=== PATIENT | male | born 1940 | race Caucasian/White ===

== ENCOUNTER 2018-07-01 11:21 | Observation (INO) | payer MEDICARE ==
[~2018-07-01] VITALS: Ht 180.3 cm; Wt 84.1 kg
[2018-07-01] MEDS ORDERED: SODIUM CHLORIDE 0.9% 1,000 ML IV SCH (12:36)
[2018-07-01 12:43] VITALS: BP 108/55
[2018-07-01] MEDS ORDERED: ALEN70TA6 PO (12:59)
[2018-07-01] MEDS ORDERED: SODIUM CHLORIDE 0.9% 1,000 ML IV ONE (13:00)
[2018-07-01] MEDS ORDERED: SPIR25TA5 PO (13:00)
[2018-07-01] MEDS ORDERED: BUME0.5T PO (13:00)
[2018-07-01] MEDS ORDERED: METO25TA91 PO (13:00)
[2018-07-01] MEDS ORDERED: APIX5TAB PO (13:00)
[2018-07-01] MEDS ORDERED: ALLO300T PO (13:00)
[2018-07-01] MEDS ORDERED: URSO300C27 PO (13:00)
[2018-07-01] MEDS ORDERED: CHOL20002 PO (13:13)
[2018-07-01] MEDS ORDERED: POTA10TA PO (13:13)
[2018-07-01] MEDS ORDERED: MAGN400T36 PO (13:13)
[2018-07-01] MEDS ORDERED: MIDAZOLAM 1 MG/ML, 2ML ONE (13:20)
[2018-07-01] MEDS ORDERED: FENTANYL PF 250 MCG/5ML ONE (13:20)
[2018-07-01] MEDS ORDERED: LIDOCAINE 1%, 20ML ONE (13:29)
[2018-07-01] MEDS ORDERED: ROCURONIUM 10 MG/ML,10ML ONE (13:33)
[2018-07-01] MEDS ORDERED: SUCCINYLCHOLINE 20 MG/ML, 10ML ONE (13:33)
[2018-07-01] MEDS ORDERED: DEXAMETHASONE 4 MG/ML, 5ML ONE ×2 (13:33→15:30)
[2018-07-01] MEDS ORDERED: PROPOFOL 10 MG/ML, 20ML ONE (15:30)
[2018-07-01] MEDS ORDERED: ONDANSETRON 2MG/ML, 2ML ONE (15:30)
[2018-07-01] MEDS ORDERED: PHENYLEPHRINE 10 MG/ML ONE (15:30)
[2018-07-01] MEDS ORDERED: ONDANSETRON ODT 8 MG PO PRN (17:30)
[2018-07-01] MEDS ORDERED: ONDANSETRON 2MG/ML, 2ML IV PRN (17:30)
[2018-07-01] MEDS ORDERED: MORPHINE SULFATE 4 MG/ML, 1ML IVPush PRN (17:30)
[2018-07-01] MEDS ORDERED: PROMETHAZINE 25 MG/ML, 1ML IV PRN (17:30)
[2018-07-01] MEDS ORDERED: MIDAZOLAM 1 MG/ML, 2ML IV PRN (17:30)
[2018-07-01] MEDS ORDERED: EPHEDRINE 50 MG/ML, 1ML IM PRN (17:30)
[2018-07-01] MEDS ORDERED: ACETAMINOPHEN 325 MG TABLET PO PRN (17:30)
[2018-07-01] MEDS ORDERED: DIAZEPAM 5 MG/ML, 2ML IVPush PRN (17:30)
[2018-07-01] MEDS ORDERED: FENTANYL PF 100 MCG/2ML IV PRN (17:30)
[2018-07-01] MEDS ORDERED: DIPHENHYDRAMINE 50 MG/ML, 1ML IVPush PRN (17:30)
[2018-07-01] MEDS ORDERED: PROMETHAZINE 25 MG SUPP PR PRN (17:30)
[2018-07-01] MEDS ORDERED: OXYcodone 5 MG/5 ML ORAL.SOL UDC PO PRN (17:30)
[2018-07-01] MEDS ORDERED: PROMETHAZINE 12.5 MG SUPP PR PRN (17:30)
[2018-07-01] MEDS ORDERED: PROTAMINE SULFATE 10 MG/ML, 5ML ONE (17:41)
[2018-07-01] MEDS: APIXABAN 5 MG TABLET PO SCH (19:30)
[2018-07-01 20:54] VITALS: BP 103/61
[2018-07-01] MEDS: POTASSIUM CHLORIDE 20 MEQ TAB.ER.PRT PO SCH (22:49)
[2018-07-01] MEDS: URSODIOL 300 MG CAPSULE PO SCH (22:49)
[2018-07-02 01:31] VITALS: BP 89/53
[2018-07-02] MEDS: SODIUM CHLORIDE 0.9% 500 ML IV SCH ×2 (02:45→11:12)
[2018-07-02 03:59] VITALS: BP 93/55
[2018-07-02 07:10] VITALS: BP 106/59
[2018-07-02] MEDS: POTASSIUM CHLORIDE 20 MEQ TAB.ER.PRT PO SCH (08:15)
[2018-07-02] MEDS: URSODIOL 300 MG CAPSULE PO SCH (08:16)
[2018-07-02] MEDS: APIXABAN 5 MG TABLET PO SCH (08:17)
[2018-07-02] MEDS ORDERED: METOPROLOL SUCCINATE 50 MG TAB.ER.24H PO SCH (09:00)
[2018-07-02] MEDS ORDERED: BUMETANIDE 1 MG TABLET PO SCH (09:00)
[2018-07-02] MEDS ORDERED: CHOLECALCIFEROL 1,000 UNIT TABLET PO SCH (09:00)
[2018-07-02] MEDS ORDERED: SPIRONOLACTONE 25 MG TABLET PO SCH (09:00)
[2018-07-02] MEDS ORDERED: ALLOPURINOL 300 MG TABLET PO SCH (09:00)
[2018-07-02] MEDS ORDERED: MAGNESIUM OXIDE 400 MG TABLET PO SCH (09:00)
[2018-07-07] MEDS ORDERED: ALENDRONATE 70 MG TABLET PO SCH (06:30)
== END 2018-07-02 12:20 | disposition home or self-care (01) ==
LOC: CACL 11:21 → 5SO 16:32 → CACL 23:01 → DCLOUNGE 07-02 12:15
PROVIDERS: ADMIT Internal Medicine Cardiovascular Disease; ATTEND Internal Medicine Cardiovascular Disease
DX: I48.92 Unspecified atrial flutter (principal); I48.91 Unspecified atrial fibrillation
CPT/HCPCS: 0399T; 85347; 93306; 93312; 93321; 93325; 93462; 93613; 93621; 93653; 93655; 93662; C1730; C1731; C1732; C1759; C1766; C1769; C1894; G0378; J0330; J1100; J2250; J2370; J2405; J2704; J2720; J3010; J3490; J7040; Q9967

== ENCOUNTER 2019-03-22 13:14 | Inpatient (IN) | payer MEDICARE ==
[2019-03-22] VITALS (9 sets, daily range): BP systolic 93–106; BP diastolic 54–65
[~2019-03-22] VITALS: Ht 180.3 cm; Wt 93.3 kg
[~2019-03-22 13:14] MED LIST: ALEN70TA6 PO; ALLO300T PO; APIX5TAB PO; BUME0.5T2 PO; CHOL20002 PO; MAGN400T36 PO; METO25TA91 PO; POTA10TA PO; SPIR25TA5 PO; URSO300C27 PO
[2019-03-22] MEDS ORDERED: SODIUM CHLORIDE 0.9% 1,000ML IVBOLUS ONE (13:30)
[2019-03-22] MEDS ORDERED: SODIUM CHLORIDE FLUSH 10ML SYR IVF ONE (13:30)
[2019-03-22] MEDS ORDERED: CEFTRIAXONE PMX 1GM/50ML 50 ML IVPB ONE (13:30)
[2019-03-22] MEDS ORDERED: ONDANSETRON 2MG/ML, 2ML IVPush ONE (13:30)
--- NOTE | 2019-03-22 13:41 | NUR ---
BRE. REPORT RECEIVED FROM EMS. PT C/O ALL QUADRANTS ABD PAIN SINCE 10:30 TODAY. NO BM FOR 4 DAYS. DX LEUKEMIA AND NO TREATMENT AT THIS TIME. PT WAS DC FROM [facility] ON SAT D/T CHEMO SIDE EFFECTS AND PNA. PT'S AOX4. RESPS EVEN AND UNLABORED. SINUS TACHY ON FUEL CELL BUILDER RATE 100'S AT THIS TIME. HYPOTENSIVE AT THIS TIME. EDMD NOTIFIED.
[2019-03-22 13:57] LABS: INTERNATIONAL NORMALIZED RATIO 1.69 (0.93-1.1); PROTHROMBIN TIME 17.4 Seconds (9.6-11.5)
[2019-03-22] MEDS ORDERED: ONDANSETRON 2MG/ML, 2ML ONE (13:57)
[2019-03-22] MEDS ORDERED: CEFTRIAXONE PMX 1GM/50ML 50 ML ONE (13:57)
[2019-03-22] MEDS ORDERED: HYDROmorphone 1 MG/ML, 1ML VIAL ONE (13:57)
[2019-03-22 13:59] LABS: ALBUMIN 2.1 g/dL (3.4-5.0); ANION GAP 8 mmol/L (5-15); CALCIUM 7.9 mg/dL (8.5-10.1); CHLORIDE 111 mmol/L (98-107); CREATININE 3.24 mg/dL (0.7-1.3)
[2019-03-22 14:01] LABS: ALKALINE PHOSPHATASE 132 U/L (45-117); TOTAL PROTEIN 4.4 g/dL (6.4-8.2)
[2019-03-22] MEDS: HYDROmorphone 2 MG/ML, 1ML IVPush PRN ×2 (14:02→15:40)
--- NOTE | 2019-03-22 14:02 | NUR ---
NS 2L BOLUS INFUSING AT THIS TIME. PT TOLERATED WELL.
[2019-03-22 14:06] LABS: ALANINE AMINOTRANSFERASE 7 U/L (12-78)
--- NOTE | 2019-03-22 14:12 | NUR ---
TASK RN: FIRST CONTACT WITH PT. Provided pt medications per EMAR. Pt appreciative. NADN. Pt requesting water. Pt told NPO at this time until reviewed with EDMD. Pt states understanding. No other needs expressed at this time. Bedrails up x 2, call light within reach, and pt connected to NIBP cuff, continous pulse ox monitor, and traffic monitor specialist. at bedside.
[2019-03-22 14:29] LABS: MEAN CORPUSCULAR VOLUME 125.2 fL (81-97); MEAN PLATELET VOLUME 9.6 fL (7.4-10.4); RED BLOOD COUNT 1.78 x10^6/uL (4.38-5.82)
[2019-03-22] MEDS ORDERED: CALCIUM CHLORIDE 10%, 10ML SYR IVPush ONE (14:30)
[2019-03-22] MEDS ORDERED: DEXTROSE 50%, 50ML SYRINGE IVPush ONE (14:30)
[2019-03-22] MEDS ORDERED: INSULIN REGULAR 100 UNITS/ML, 3ML VIAL IVPush ONE (14:30)
[2019-03-22] MEDS ORDERED: TAMS-11 PO (14:32)
[2019-03-22] MEDS ORDERED: VALA1000 PO (14:33)
[2019-03-22] MEDS ORDERED: ALEN70TA6 PO (14:33)
[2019-03-22] MEDS ORDERED: ASCO500T7 PO (14:34)
[2019-03-22 14:35] LABS: MEAN CORPUSCULAR HEMOGLOBIN 38.7 pg (27.5-34.5); MEAN CORPUSCULAR HGB CONC 30.9 g/dL (33.2-36.2); PLATELET COUNT 45 x10^3/uL (130-400); RED CELL DISTRIBUTION WIDTH 29.1 % (9.4-14.8)
[2019-03-22] MEDS ORDERED: FOLI-17 PO (14:35)
[2019-03-22] MEDS ORDERED: CYAN100028 PO (14:35)
--- NOTE | 2019-03-22 14:36 | NUR ---
URINAL AT BEDSIDE. PT AWARES OF UA.
[2019-03-22] MEDS ORDERED: INSULIN SINGLE DOSE, ER ONE (14:44)
[2019-03-22] MEDS ORDERED: CALCIUM CHLORIDE 10%, 10ML SYR ONE (14:44)
--- NOTE | 2019-03-22 14:57 | NUR ---
PT MEDICATED PER EMAR. PT TOLERATED WELL. PT'S AOX4. RESPS EVEN AND UNLABORED.
[2019-03-22 14:59] LABS: MD YES
--- NOTE | 2019-03-22 15:00 | NUR ---
INSULIN AMOUT PER POTASSIUM PROTOCOL.
[2019-03-22 15:23] LABS: EOS% (MANUAL) 1 % (1-7); LYMPH#(MANUAL) 88.26 x10^3/uL (1-3.4); LYMPHS% (MANUAL) 88 % (22-44); MONOS#(MANUAL) 2.01 x10^3/uL (0.3-2.7); MONOS% (MANUAL) 2 % (2-9); SEG#(MANUAL) 9.03 x10^3/uL (1.8-6.8); SEGS% (MANUAL) 9 % (42-75)
[2019-03-22 15:26] LABS: ANISOCYTOSIS 2+; POLYCHROMASIA 1+
--- NOTE | 2019-03-22 15:26 | NUR ---
CT delay, iv start.
[2019-03-22 15:27] LABS: ECHINOCYTES 1+; OVALOCYTES 1+
[2019-03-22 15:28] LABS: <PLATELET ESTIMATE> DECREASED; SMUDGE CELLS 2+
[2019-03-22 15:29] LABS: <PLT MORPHOLOGY> NORMAL PLT MORPH
--- NOTE | 2019-03-22 15:35 | NUR ---
BLOOD CONSENT FORM SIGNED BY PT AND EDMD AT THIS TIME.
[2019-03-22] MEDS ORDERED: HYDROmorphone 2 MG/ML, 1ML ONE (15:38)
--- NOTE | 2019-03-22 15:43 | NUR ---
PT C/O PAIN. PT MEDICATED PER EMAR FOR PAIN. PT TOLERATED WELL.
--- NOTE | 2019-03-22 17:00 | NUR ---
BLOOD RECEIVED FROM BLOOD BANK.
--- NOTE | 2019-03-22 17:06 | NUR ---
BLOOD TRANSFUSION STARTED AT THIS TIME. PT TOLERATED WELL.
[2019-03-22 17:07] LABS: ALBUMIN 2.1 g/dL (3.4-5.0); ANION GAP 8 mmol/L (5-15); CHLORIDE 115 mmol/L (98-107); CREATININE 3.11 mg/dL (0.7-1.3)
[2019-03-22] MEDS ORDERED: SODIUM CHLORIDE 0.9% 1,000 ML IV SCH (17:15)
--- NOTE | 2019-03-22 17:28 | NUR ---
HOTLINE FLUID WARMER USING D/T LOW TEMP(95.1 RECTAL) AT THIS TIME.
[2019-03-22] MEDS ORDERED: CEFTRIAXONE PMX 1GM/50ML 50 ML IV SCH (17:30)
--- NOTE | 2019-03-22 17:33 | NUR ---
LABS AT BEDSIDE AT THIS TIME.
[2019-03-22 17:40] LABS: TROPONIN I 0.019 ng/mL (0.000-0.045)
--- NOTE | 2019-03-22 17:51 | NUR ---
PT STILL TRANSFUSING PRBCS, PT'S AOX4. RESPS EVEN AND UNLABORED. PT DENIES PAIN, SOB, ANY OTHER SX AT THIS TIME. PIV SITE CDI WITH NO REDNESS/EDEMA. PT'S TEMP IS STILL LOW(95.0 RECTAL) AT THIS TIME. BEAR HUGGER IS USING. FLUID WARMER USING WELL.
--- NOTE | 2019-03-22 17:58 | NUR ---
BEAR HUGGER WITH BLANKET PLACED AT THIS TIME D/T LOW TEMP.
--- NOTE | 2019-03-22 18:10 | NUR ---
REPORT GIVEN TO NATALEE WILEY. ALL QUESTIONS ANSWERED.
[2019-03-22] MEDS ORDERED: THIAMINE 200 MG in SODIUM CHLORIDE 0.9% 50 ML IV ONE (18:16)
[2019-03-23 00:12] LABS: TROPONIN I 0.016 ng/mL (0.000-0.045)
[2019-03-23] MEDS: LINEZOLID PMX 600MG/300ML 300 ML IV SCH ×2 (00:13→05:31)
[2019-03-23 01:54] VITALS: BP 97/56
[2019-03-23] MEDS: LACTATED RINGERS 1,000 ML IV SCH ×2 (03:04→05:32)
[2019-03-23 03:49] LABS: CULTURE INDICATED? YES; MICROSCOPIC INDICATED
[2019-03-23 04:42] LABS: ALBUMIN 2.1 g/dL (3.4-5.0); ANION GAP 8 mmol/L (5-15); CALCIUM 7.9 mg/dL (8.5-10.1); CHLORIDE 113 mmol/L (98-107); CREATININE 3.15 mg/dL (0.7-1.3)
[2019-03-23 04:43] LABS: ALANINE AMINOTRANSFERASE < 6 U/L (12-78)
[2019-03-23 04:52] LABS: ALKALINE PHOSPHATASE 139 U/L (45-117); BILIRUBIN,TOTAL 8.4 mg/dL (0.2-1.0); TOTAL PROTEIN 4.3 g/dL (6.4-8.2)
[2019-03-23 06:05] LABS: MD YES; MEAN CORPUSCULAR HEMOGLOBIN 35.8 pg (27.5-34.5); MEAN CORPUSCULAR HGB CONC 30.7 g/dL (33.2-36.2); MEAN CORPUSCULAR VOLUME 116.5 fL (81-97); MEAN PLATELET VOLUME 10.4 fL (7.4-10.4); RED BLOOD COUNT 2.46 x10^6/uL (4.38-5.82); RED CELL DISTRIBUTION WIDTH 30.2 % (9.4-14.8)
[2019-03-23 06:08] LABS: PLATELET COUNT 37 x10^3/uL (130-400)
[2019-03-23 06:11] LABS: LYMPHS% (MANUAL) 87 % (22-44); MONOS#(MANUAL) 2.15 x10^3/uL (0.3-2.7); MONOS% (MANUAL) 2 % (2-9); SEG#(MANUAL) 11.85 x10^3/uL (1.8-6.8); SEGS% (MANUAL) 11 % (42-75)
[2019-03-23 06:12] LABS: SMUDGE CELLS 3+
[2019-03-23 06:13] LABS: ANISOCYTOSIS 2+; OVALOCYTES 1+
[2019-03-23 06:14] LABS: <PLATELET ESTIMATE> DECREASED; <PLT MORPHOLOGY> NORMAL PLT MORPH; ECHINOCYTES 1+; POLYCHROMASIA 1+
[2019-03-23] MEDS ORDERED: SODIUM POLYSTYRENE SULFONATE ORAL SUSP PO ONE (08:00)
[2019-03-23 09:01] VITALS: BP 109/69
[2019-03-23] MEDS ORDERED: ONDANSETRON ODT 4 MG PO PRN (11:30)
[2019-03-23] MEDS ORDERED: ONDANSETRON 2MG/ML, 2ML IVPush PRN (11:30)
[2019-03-23 13:16] VITALS: BP 103/56
[2019-03-23 14:32] LABS: ALBUMIN 2.2 g/dL (3.4-5.0); ANION GAP 12 mmol/L (5-15); CALCIUM 7.7 mg/dL (8.5-10.1); CHLORIDE 112 mmol/L (98-107)
[2019-03-23 14:38] LABS: ALANINE AMINOTRANSFERASE 7 U/L (12-78); ALKALINE PHOSPHATASE 147 U/L (45-117); BILIRUBIN,TOTAL 8.4 mg/dL (0.2-1.0); TOTAL PROTEIN 4.4 g/dL (6.4-8.2)
[2019-03-23] MEDS: PANTOPRAZOLE 40 MG IV IVPush SCH (18:04)
[2019-03-23 18:24] VITALS: BP 105/63
[2019-03-23] MEDS ORDERED: THIAMINE 100 MG in SODIUM CHLORIDE 0.9% 50 ML IV SCH (18:30)
[2019-03-24] MEDS: LINEZOLID PMX 600MG/300ML 300 ML IV SCH ×2 (00:02→13:14)
[2019-03-24 01:54] VITALS: BP 99/55
[2019-03-24] MEDS: PANTOPRAZOLE 40 MG IV IVPush SCH ×2 (04:39→17:29)
[2019-03-24 05:09] LABS: ANION GAP 7 mmol/L (5-15); CALCIUM 7.9 mg/dL (8.5-10.1); CHLORIDE 113 mmol/L (98-107); CREATININE 2.97 mg/dL (0.7-1.3)
[2019-03-24 07:16] VITALS: BP 90/52
[2019-03-24 08:19] VITALS: BP 113/60
[2019-03-24 14:55] VITALS: BP 96/57
[2019-03-24] MEDS ORDERED: MORPHINE SULFATE 4 MG/ML, 1ML IVPush PRN (17:00)
[2019-03-24] MEDS ORDERED: LORazepam INTENSOL 2 MG/ML SL PRN (17:00)
[2019-03-24 19:06] VITALS: BP 103/60
[2019-03-25] MEDS: PANTOPRAZOLE 40 MG IV IVPush SCH ×2 (04:59→18:12)
[2019-03-26] MEDS: PANTOPRAZOLE 40 MG IV IVPush SCH ×2 (05:38→18:04)
[2019-03-27] MEDS: PANTOPRAZOLE 40 MG IV IVPush SCH (06:23)
== END 2019-03-27 14:15 | disposition hospice, home (50) | DRG 840 ==
LOC: ED 14:38 → EDIP 15:34 → 4NW 18:14
PROVIDERS: ADMIT Internal Medicine; ATTEND Internal Medicine
PROC: 30233N1 Transfusion of Nonautologous Red Blood Cells into Peripheral Vein, Percutaneous Approach (ICD-10-PCS; 2019-03-22)
PROC: 0T9B70Z Drainage of Bladder with Drainage Device, Via Natural or Artificial Opening (ICD-10-PCS; principal; 2019-03-23)
DX: C91.10 Chronic lymphocytic leukemia of B-cell type not having achieved remission (principal); E43 Unspecified severe protein-calorie malnutrition; D68.9 Coagulation defect, unspecified; N17.9 Acute kidney failure, unspecified; K70.31 Alcoholic cirrhosis of liver with ascites; N18.3 Chronic kidney disease, stage 3 (moderate); I12.9 Hypertensive chronic kidney disease with stage 1 through stage 4 chronic kidney disease, or unspecified chronic kidney disease; N40.0 Benign prostatic hyperplasia without lower urinary tract symptoms; G47.33 Obstructive sleep apnea (adult) (pediatric); K12.30 Oral mucositis (ulcerative), unspecified; L89.152 Pressure ulcer of sacral region, stage 2; E86.0 Dehydration; D69.59 Other secondary thrombocytopenia; E87.5 Hyperkalemia; K59.00 Constipation, unspecified; I48.0 Paroxysmal atrial fibrillation; Z66 Do not resuscitate; M10.9 Gout, unspecified; Z51.5 Encounter for palliative care; Z87.01 Personal history of pneumonia (recurrent); Z82.0 Family history of epilepsy and other diseases of the nervous system; Z88.0 Allergy status to penicillin; Z79.899 Other long term (current) drug therapy; Z68.27 Body mass index [BMI] 27.0-27.9, adult; D63.0 Anemia in neoplastic disease; K70.40 Alcoholic hepatic failure without coma; D64.89 Other specified anemias
CPT/HCPCS: 36415; 71045; 74176; 80048; 80053; 81001; 82040; 82533; 83605; 83690; 84443; 84484; 85025; 85610; 86850; 86900; 86923; 87040; 87086; 93005; 93306; 96361; 96365; 96375; 99291; G0378; J0696; J1170; J2020; J2405; J3411; C9113; J1815; J2270; J7030; J7120; P9040